=== PATIENT | male | born 1975 | race Caucasian/White ===

== ENCOUNTER 2021-12-15 10:12 | Emergency (ER) | payer OTHER, SELFPAY ==
--- NOTE | 2021-12-15 10:22 | ED.URI ---
HPI - URI/Sore Throat General Chief Complaint: Upper Respiratory Infection Stated Complaint: Sore Throat,Fatigue,Headache,Cough,Congestion Time Seen by Provider: 12/15/21 10:22 Source: patient Mode of arrival: ambulatory Limitations: no limitations History of Present Illness HPI Narrative: 46-year-old male presents with complaint of sinus congestion, sinus pressure, fatigue, sore throat, postnasal drainage for 10 days. Denies fever. Taking [id number] DayQuil NyQuil cold and sinus with no relief of symptoms. Did a home COVID test 1 day after symptoms for starting and was negative. Reports throat is burning, hurts really bad . No cough. Denies chest pain shortness of breath. All systems reviewed and negative except as noted above. Related Data Home Medications Medication Instructions Recorded Confirmed carbamazepine 200 mg tablet 1 tablet QID 12/15/21 12/15/21 Allergies Allergy/AdvReac Type Severity Reaction Status Date / Time pineapple Allergy Swelling Verified 12/15/21 10:56 Review of Systems Review of Systems: CONSTITUTIONAL: Denies fever, chills, or sweats. Reports fatigue EYES: Denies visual changes, redness, or discharge. ENT: Reports rhinorrhea, congestion, sore throat. Denies otalgia. CARDIOVASCULAR: Denies chest pain, palpitations, or edema. RESPIRATORY: Denies cough or dyspnea. GASTROINTESTINAL: Denies abdominal pain, nausea, vomiting, or diarrhea. GENITOURINARY: Denies dysuria or hematuria. SKIN: Denies rash or itching. MUSCULOSKELETAL: Denies back pain, joint pain, or myalgia. NEUROLOGIC: Denies headache, numbness, or weakness. PSYCHIATRIC: Denies anxiety or depression. All other systems reviewed are negative, except as documented in HPI. PMFSH Comments At time of signature, agree with nursing past medical, surgical, social and family history. There is no relevant family history pertinent to the presenting complaint. Exam Narrative: GENERAL: This is a well-nourished, well-developed patient, in no apparent distress. HEAD: normocephalic, atraumatic. EYES: PERRL. Sclera clear/white. Vision is grossly intact. EARS: External ears normal, auditory canals clear and without drainage, fluid with air bubbles to bilateral TMs. No erythema. No perforation. NOSE: External nose normal with no obvious clear nasal drainage, mild erythema to both nares. No significant swelling. Maxillary sinus tenderness bilaterally. THROAT: Mucous membranes moist, clear postnasal drainage noted. NECK: Neck supple, non-tender without lymphadenopathy, masses or thyromegaly. CARDIOVASCULAR: Regular rate and rhythm without murmurs, gallops, or rubs. RESPIRATORY: Clear to auscultation. Breath sounds equal bilaterally. No wheezes, rales, or rhonchi. SKIN: warm, Dry, intact with no suspicious lesions or rash, good texture and turgor. NEURO: awake, alert, and oriented to person, place and time. There were no obvious focal neurologic abnormalities. EXTREMITIES: Normal range of motion to all extremities. Course Course Level of Care: Express Care Visit Vital Signs Vital signs: Vital Signs Temperature 36.8 C 12/15/21 10:27 Pulse Rate 67 12/15/21 10:27 Respiratory Rate 18 12/15/21 10:27 Blood Pressure 123/92 H 12/15/21 10:27 Pulse Oximetry 99 12/15/21 10:27 Oxygen Delivery Room Air 12/15/21 10:27 Temperature 36.8 C 12/15/21 10:27 Pulse Rate 67 12/15/21 10:27 Respiratory Rate 18 12/15/21 10:27 Blood Pressure 123/92 H 12/15/21 10:27 Pulse Oximetry 99 12/15/21 10:27 Oxygen Delivery Room Air 12/15/21 10:27 Reviewed MDM - URI/Sore Throat MDM Narrative Medical decision making narrative: Negative COVID and strep test today. We will treat for sinus infection due to duration of symptoms. Patient is aware of diagnosis, understands and agrees to treatment plan. Anticipatory guidance given. Patient agrees to follow-up as directed and is aware of reasons to seek care at the emergency
[2021-12-15 10:27] VITALS: BP 123/92; PULSE 67; RESP 18; TEMP 36.8; O2SAT 99
== END 2021-12-15 11:22 | disposition home or self-care (01) ==
PROVIDERS: Emergency Provider Nurse Practitioner Family
DX: J01.90 Acute sinusitis, unspecified (principal); Z20.822 Contact with and (suspected) exposure to COVID-19; F17.290 Nicotine dependence, other tobacco product, uncomplicated
CPT/HCPCS: 87081; 87426; 87880; 99203; C9803; G0463